=== PATIENT | female | born 1980 | race Hispanic/Latino ===

== ENCOUNTER 2017-01-19 19:58 | Emergency (ER) | payer MEDICARE ==
[2017-01-19 21:43] LABS: Basophils % (Auto) 0.3 % (0.0-1.8); Hemoglobin 13.1 gm/dl (10.1-14.3); Mean Corpuscular HGB Conc 33 % (30-34); Mean Corpuscular Hemoglobin 26 pg (28-32); Mean Corpuscular Volume 80 fl (79-97); Platelet Count 234 K/mm3 (140-440); Red Blood Count 5.01 M/mm3 (3.65-5.03); Red Cell Distribution Width 13.8 % (13.2-15.2); White Blood Count 12.6 K/mm3 (4.5-11.0)
[2017-01-19 21:57] LABS: Anion Gap 20 mmol/L; Blood Urea Nitrogen 7 mg/dL (7-17); Calcium 9.1 mg/dL (8.4-10.2); Carbon Dioxide 22 mmol/L (22-30); Chloride 97.5 mmol/L (98-107); Glucose 112 mg/dL (65-100); Potassium 3.1 mmol/L (3.6-5.0); Sodium 136 mmol/L (137-145)
[2017-01-19 22:06] LABS: INR 1.11 (0.87-1.13)
[2017-01-19] MEDS ORDERED: MAG-OX PO ONE (22:32)
[2017-01-19] MEDS ORDERED: K-DUR PO ONE (22:32)
[2017-01-19] MEDS ORDERED: NACL 0.9% 1000 ML 2,000 ML IV ONE (22:49)
[2017-01-19] MEDS ORDERED: REGLAN IV ONE (22:49)
[2017-01-19] MEDS ORDERED: TORADOL IV ONE (22:49)
--- NOTE | 2017-01-19 22:50 | Emergency Department Report ---
ED General Adult HPI - General Chief complaint: Psych Stated complaint: ANXIETY ATTACK Time Seen by Provider: 01/19/17 21:23 Source: patient, RN notes reviewed Mode of arrival: Ambulatory Limitations: No Limitations - History of Present Illness Initial comments: This is a 36-year-old female. She was previously unknown to me. Patient recently moved here from the [facility]. The patient presents to the ER complaining of headache, right upper quadrant pain, lower abdominal pain, nausea , generalized weakness. She reports that she feels anxious. The headache is global. It is throbbing. It is not sudden or thunderclap in nature. It did not reach maximal intensity within an hour. It is not the worse headache of her life. She reports a worse headache last year. There is no neck pain or neck stiffness. The abdominal pain is right upper quadrant, suprapubic, in the bilateral lower quadrants. It does not radiate anywhere per se, does not have exacerbating or relieving factors. The patient denies irritative obstructive urinary symptoms. She denies pelvic pain, pelvic discharge, and she reports that she is sexually active with one partner, does not work condoms, and she denies a history of gonorrhea and Chlamydia. She denies hallucinations, access to good firearms, and homicidal thoughts. She further denies intentional overdose. The patient does endorse suicidality, reports feeling stressed out. She does not have a plan at this time. -: Gradual Location: head, abdomen Quality: aching Consistency: intermittent Improves with: none Worsens with: none Associated Symptoms: fever/chills, headaches, loss of appetite, malaise, weakness - Related Data Previous Rx's Medication Instructions Recorded Last Taken Type Ibuprofen [Motrin] 400 mg PO Q8H PRN #20 tablet 01/20/17 Unknown Rx Levofloxacin [Levaquin] 750 mg PO QDAY #10 tablet 01/20/17 Unknown Rx Magnesium Oxide 400 mg PO QDAY #7 tablet 01/20/17 Unknown Rx Metoclopramide [Reglan] 10 mg PO QID PRN #30 tablet 01/20/17 Unknown Rx Potassium Chloride [K-Dur] 20 meq PO BID #14 tab 01/20/17 Unknown Rx oxyCODONE [Roxicodone] 5 mg PO Q6HR PRN #15 tablet 01/20/17 Unknown Rx Allergies Allergy/AdvReac Type Severity Reaction Status Date / Time No Known Allergies Allergy Verified 01/19/17 20:24 ED Review of Systems ROS: Stated complaint: ANXIETY ATTACK Other details as noted in HPI Constitutional: malaise Eyes: denies: vision change ENT: denies: epistaxis Respiratory: denies: cough Cardiovascular: denies: chest pain Gastrointestinal: abdominal pain Genitourinary: denies: dysuria Musculoskeletal: denies: back pain Skin: denies: lesions Neurological: headache, weakness Psychiatric: anxiety, suicidal thoughts ED Past Medical Hx - Past Medical History Previous Medical History?: Yes Hx Psychiatric Treatment: Yes (ANXIETY) - Surgical History Past Surgical History?: No - Social History Smoking Status: Never Smoker Substance Use Type: Marijuana - Medications Home Medications: Home Medications Medication Instructions Recorded Confirmed Last Taken Type Ibuprofen [Motrin] 400 mg PO Q8H PRN #20 tablet 01/20/17 Unknown Rx Levofloxacin [Levaquin] 750 mg PO QDAY #10 tablet 01/20/17 Unknown Rx Magnesium Oxide 400 mg PO QDAY #7 tablet 01/20/17 Unknown Rx Metoclopramide [Reglan] 10 mg PO QID PRN #30 tablet 01/20/17 Unknown Rx Potassium Chloride [K-Dur] 20 meq PO BID #14 tab 01/20/17 Unknown Rx oxyCODONE [Roxicodone] 5 mg PO Q6HR PRN #15 tablet 01/20/17 Unknown Rx ED Physical Exam - General Limitations: No Limitations General appearance: alert, in no apparent distress - Head Head exam: Present: atraumatic, normocephalic - Eye Eye exam: Present: normal appearance, EOMI. Absent: nystagmus - ENT ENT exam: Present: normal exam, normal orophraynx, mucous membranes moist, normal external ear exam - Neck Neck exam: Present: normal inspection, full ROM. Absent: tenderness, meningismus - Respiratory Respiratory exam: Present: normal lung sounds bilaterally. Absent: respiratory distress, wheezes, rales, rhonchi, stridor, chest wall tenderness - Cardiovascular Cardiovascular Exam: Present: normal rhythm, tachycardia, normal heart sounds. Absent: systolic murmur, diastolic murmur, rubs, gallop - GI/Abdominal GI/Abdominal exam: Present: soft, tenderness (there is right upper quadrant tenderness, there is bilateral lower quadrant tenderness, there is suprapubic tenderness.), normal bowel sounds. Absent: distended, guarding, rebound, rigid - External exam: Present: normal external exam Speculum exam: Present: normal speculum exam Bi-manual exam: Present: normal bi-manual exam, other (escorted by ER plastic surgery technician Trini Manzo). Absent: cervical motion tendernes, adnexal tenderness, adnexal mass - Extremities Exam Extremities exam: Present: normal inspection, full ROM, normal capillary refill. Absent: tenderness, pedal edema, joint swelling, calf tenderness - Back Exam Back exam: Present: normal inspection, full ROM. Absent: tenderness, CVA tenderness (R), CVA tenderness (L) - Neurological Exam Neurological exam: Present: alert, oriented X3, normal gait, other (Extraocular movements intact. Tongue midline. No facial droop. Facial sensation intact to light touch in the V1, V2, V3 distribution bilaterally. 5 and 5 strength in 4 extremities.. Sensation is intact to light touch in 4 extremities.). Absent : motor sensory deficit - Psychiatric Psychiatric exam: Present: anxious, suicidal ideation. Absent: homicidal ideation - Skin Skin exam: Present: warm, dry, intact, normal color. Absent: rash ED Course Vital Signs 01/19/17 01/20/17 01/20/17 20:24 01:18 01:19 Temperature 99.3 F 98.5 F 98.4 F Pulse Rate 121 H 78 100 H Respiratory 32 H 18 12 Rate Blood Pressure 140/74 Blood Pressure 145/96 118/75 [Left] O2 Sat by Pulse 100 100 99 Oximetry 01/20/17 08:52 Temperature 99 F Pulse Rate 94 H Respiratory 18 Rate Blood Pressure Blood Pressure 103/65 [Left] O2 Sat by Pulse 100 Oximetry - Reevaluation(s) Reevaluation #1: 01/20/17 01:18 Differential diagnosis: Anxiety, depression, pyelonephritis, dehydration, pelvic inflammatory disease, Drew-Gen Dagoberto syndrome, electrolyte derangement Assessment and plan: 36-year-old female with complaint of headache, abdominal pain, depression, suicidality. Rectal temperature 99.8 degrees, initially tachycardic, this improved with aggressive IV fluids and symptomatic therapy. Gynecologic examination is benign, therefore think pelvic inflammatory disease is unlikely. Patient found to be somewhat hypokalemic and hypomagnesemic. Urinalysis suggests urinary tract infection, CT scan of the abdomen and pelvis excluded abscess, but suggested left-sided pyelonephritis. Drew-Gen Dagoberto syndrome is not suggested. Nonspecific lesions noted in the chest portion of the CT scan, the patient can follow up with an outpatient primary care doctor for this. The patient is placed on a 1013 given her complaint of suicidality. She will be continued on magnesium supplementation, potassium supplementation, IV fluids and antibiotics. Patient was initially tachycardic, but her tachycardia improved with aggressive IV fluids. She will be continued on potassium and magnesium supplementation. She will be continued on IV antibiotics. Given resolution of abnormal vital signs, her ability to tolerate liquid feeds, and eat, and her overall benign clinical appearance, her urinary tract infection is not a direct medical contraindication to psychiatric consultation and evaluation. She is alert and oriented 3, has a GCS of 15, with an NIH score of 0. Medically speaking, but the patient was not suicidal, I would discharge the patient with outpatient antibiotics, antiemetics, and electrolyte replenishment. Her current condition does not require hospitalization at this time. There is no medical complications a psychiatric evaluation at this time. 01/20/17 01:21 ED Medical Decision Making - Lab Data Result diagrams: 01/19/17 21:30 01/19/17 21:30 Vital Signs 01/19/17 01/20/17 01/20/17 20:24 01:18 01:19 Temperature 99.3 F 98.5 F 98.4 F Pulse Rate 121 H 78 100 H Respiratory 32 H 18 12 Rate Blood Pressure 140/74 Blood Pressure 145/96 118/75 [Left] O2 Sat by Pulse 100 100 99 Oximetry Labs 01/19/17 01/19/17 01/19/17 20:21 21:30 21:30 WBC RBC Hgb Hct MCV MCH MCHC RDW Plt Count Lymph % (Auto) [place] % (Auto) Eos % (Auto) Baso % (Auto) Lymph # [place] # Eos # Baso # Seg Neutrophils % Seg Neutrophils # PT INR Sodium 136 L Potassium 3.1 L Chloride 97.5 L Carbon Dioxide 22 Anion Gap 20 BUN 7 Creatinine 0.5 L Estimated GFR > 60 BUN/Creatinine Ratio 14.00 Glucose 112 H POC Glucose 122 H Calcium 9.1 Magnesium Total Bilirubin Direct Bilirubin Indirect Bilirubin AST ALT Alkaline Phosphatase Total Creatine Kinase Total Protein Albumin Albumin/Globulin Ratio Lipase HCG, Qual Urine Color Urine Turbidity Urine pH Ur Specific [place] Urine Protein Urine Glucose (UA) Urine Ketones Urine Blood Urine Nitrite Urine Bilirubin Urine Urobilinogen Ur Leukocyte Esterase Urine WBC (Auto) Urine RBC (Auto) U Epithel Cells (Auto) Urine Bacteria (Auto) Urine Mucus Salicylates Urine Opiates Screen Urine Methadone Screen Acetaminophen Ur Barbiturates Screen Ur Phencyclidine Scrn Ur Amphetamines Screen U Benzodiazepines Scrn Urine Cocaine Screen U Marijuana (THC) Screen Drugs of Abuse Note Plasma/Serum Alcohol < 0.01 01/19/17 01/19/17 01/19/17 21:30 21:30 21:30 WBC 12.6 H RBC 5.01 Hgb 13.1 Hct 40.0 MCV 80 MCH 26 L MCHC 33 RDW 13.8 Plt Count 234 Lymph % (Auto) 10.0 L [place] % (Auto) 11.2 H Eos % (Auto) 0.0 Baso % (Auto) 0.3 Lymph # 1.3 [place] # 1.4 H Eos # 0.0 Baso # 0.0 Seg Neutrophils % 78.5 H Seg Neutrophils # 9.9 H PT INR Sodium Potassium Chloride Carbon Dioxide Anion Gap BUN Creatinine Estimated GFR BUN/Creatinine Ratio Glucose POC Glucose Calcium Magnesium Total Bilirubin Direct Bilirubin Indirect Bilirubin AST ALT Alkaline Phosphatase Total Creatine Kinase 86 Total Protein Albumin Albumin/Globulin Ratio Lipase HCG, Qual Negative Urine Color Urine Turbidity Urine pH Ur Specific [place] Urine Protein Urine Glucose (UA) Urine Ketones Urine Blood Urine Nitrite Urine Bilirubin Urine Urobilinogen Ur Leukocyte Esterase Urine WBC (Auto) Urine RBC (Auto) U Epithel Cells (Auto) Urine Bacteria (Auto) Urine Mucus Salicylates Urine Opiates Screen Urine Methadone Screen Acetaminophen Ur Barbiturates Screen Ur Phencyclidine Scrn Ur Amphetamines Screen U Benzodiazepines Scrn Urine Cocaine Screen U Marijuana (THC) Screen Drugs of Abuse Note Plasma/Serum Alcohol 01/19/17 01/19/17 01/19/17 21:30 21:30 21:30 WBC RBC Hgb Hct MCV MCH MCHC RDW Plt Count Lymph % (Auto) [place] % (Auto) Eos % (Auto) Baso % (Auto) Lymph # [place] # Eos # Baso # Seg Neutrophils % Seg Neutrophils # PT INR Sodium Potassium Chloride Carbon Dioxide Anion Gap BUN Creatinine Estimated GFR BUN/Creatinine Ratio Glucose POC Glucose Calcium Magnesium Total Bilirubin 0.70 Direct Bilirubin 0.2 Indirect Bilirubin 0.5 AST 11 ALT 11 Alkaline Phosphatase 45 Total Creatine Kinase Total Protein 7.5 Albumin 4.4 Albumin/Globulin Ratio 1.4 Lipase 15 HCG, Qual Urine Color Urine Turbidity Urine pH Ur Specific [place] Urine Protein Urine Glucose (UA) Urine Ketones Urine Blood Urine Nitrite Urine Bilirubin Urine Urobilinogen Ur Leukocyte Esterase Urine WBC (Auto) Urine RBC (Auto) U Epithel Cells (Auto) Urine Bacteria (Auto) Urine Mucus Salicylates < 0.3 L Urine Opiates Screen Urine Methadone Screen Acetaminophen < 15.0 Ur Barbiturates Screen Ur Phencyclidine Scrn Ur Amphetamines Screen U Benzodiazepines Scrn Urine Cocaine Screen U Marijuana (THC) Screen Drugs of Abuse Note Plasma/Serum Alcohol 01/19/17 01/19/17 01/19/17 21:40 22:20 22:20 WBC RBC Hgb Hct MCV MCH MCHC RDW Plt Count Lymph % (Auto) [place] % (Auto) Eos % (Auto) Baso % (Auto) Lymph # [place] # Eos # Baso # Seg Neutrophils % Seg Neutrophils # PT 14.9 INR 1.11 Sodium Potassium Chloride Carbon Dioxide Anion Gap BUN Creatinine Estimated GFR BUN/Creatinine Ratio Glucose POC Glucose Calcium Magnesium Total Bilirubin Direct Bilirubin Indirect Bilirubin AST ALT Alkaline Phosphatase Total Creatine Kinase Total Protein Albumin Albumin/Globulin Ratio Lipase HCG, Qual Urine Color Yellow Urine Turbidity Cloudy Urine pH 6.0 Ur Specific [place] 1.017 Urine Protein 100 mg/dl Urine Glucose (UA) Neg Urine Ketones 80 Urine Blood Mod Urine Nitrite Pos Urine Bilirubin Neg Urine Urobilinogen 4.0 Ur Leukocyte Esterase Lg Urine WBC (Auto) > 182.0 H Urine RBC (Auto) 23.0 U Epithel Cells (Auto) 65.0 H Urine Bacteria (Auto) 4+ Urine Mucus 3+ Salicylates Urine Opiates Screen Presumptive negative Urine Methadone Screen Presumptive negative Acetaminophen Ur Barbiturates Screen Presumptive negative Ur Phencyclidine Scrn Presumptive negative Ur Amphetamines Screen Presumptive negative U Benzodiazepines Scrn Presumptive negative Urine Cocaine Screen Presumptive negative U Marijuana (THC) Screen Presumptive positive Drugs of Abuse Note Disclamer Plasma/Serum Alcohol 01/19/17 22:32 WBC RBC Hgb Hct MCV MCH MCHC RDW Plt Count Lymph % (Auto) [place] % (Auto) Eos % (Auto) Baso % (Auto) Lymph # [place] # Eos # Baso # Seg Neutrophils % Seg Neutrophils # PT INR Sodium Potassium Chloride Carbon Dioxide Anion Gap BUN Creatinine Estimated GFR BUN/Creatinine Ratio Glucose POC Glucose Calcium Magnesium 1.60 L Total Bilirubin Direct Bilirubin Indirect Bilirubin AST ALT Alkaline Phosphatase Total Creatine Kinase Total Protein Albumin Albumin/Globulin Ratio Lipase HCG, Qual Urine Color Urine Turbidity Urine pH Ur Specific [place] Urine Protein Urine Glucose (UA) Urine Ketones Urine Blood Urine Nitrite Urine Bilirubin Urine Urobilinogen Ur Leukocyte Esterase Urine WBC (Auto) Urine RBC (Auto) U Epithel Cells (Auto) Urine Bacteria (Auto) Urine Mucus Salicylates Urine Opiates Screen Urine Methadone Screen Acetaminophen Ur Barbiturates Screen Ur Phencyclidine Scrn Ur Amphetamines Screen U Benzodiazepines Scrn Urine Cocaine Screen U Marijuana (THC) Screen Drugs of Abuse Note Plasma/Serum Alcohol - Radiology Data Radiology results: report reviewed, image reviewed CT scan suggests pyelonephritis. Pulmonary lesion is suggested, this can be followed up by her primary care doctor Critical care attestation.: If time is entered above; I have spent that time in minutes in the direct care of this critically ill patient, excluding procedure time. ED Disposition Clinical Impression: Pyelonephritis, Mood disorder, Hypokalemia, Hypomagnesemia Disposition: TO HOME OR SELFCARE Is pt being admited?: No Does the pt Need Aspirin: No Condition: Stable Instructions: Acute Pyelonephritis (ED) Additional Instructions: Cultures were sent today, results will be available in the next 3-5 days. have a primary care doctor and have a primary care doctor contact the medical records department to obtain culture results. Take the pain medication, nausea medication, potassium, magnesium, antibiotics as directed. Do not consume alcohol. Follow-up with a primary care doctor within the next 7-10 days. Return to the ER right away with new pain, worsened pain, migration of pain, fevers, chills, confusion, intractable nausea or vomiting, inability to tolerate liquid feeds. Referrals: PRIMARY MD GRISELDA [Primary Care Provider] - 3-5 Days OLIVIA SONI MD [Staff Physician] - 3-5 Days
[2017-01-19 23:20] LABS: Urine Drugs of Abuse Note Disclamer
[2017-01-19 23:51] LABS: Albumin 4.4 g/dL (3.9-5); Albumin/Globulin Ratio 1.4 %; Bilirubin,Direct 0.2 mg/dL (0-0.2); Bilirubin,Indirect 0.5 mg/dL; Bilirubin,Total 0.7 mg/dL (0.1-1.2); Total Protein 7.5 g/dL (6.3-8.2)
[2017-01-20 00:32] LABS: Bacteria,Urine 4+ /HPF (Negative); Bilirubin,Urine NEG (Negative); Blood,Urine MOD (Negative); Ketones,Urine 80 mg/dL (Negative); Leukocyte Esterase,Urine LG (Negative); Mucus,Urine 3+ /HPF; Nitrite,Urine POS (Negative)
[2017-01-20 00:34] LABS: WBC,Urine > 182.0 /HPF (0.0-6.0)
--- NOTE | 2017-01-20 01:05 | Cat Scan Report ---
FINAL REPORT EXAM: CT ABDOMEN PELVIS W CON HISTORY: RUQ LOWER ABD PAIN TECHNIQUE: Spiral CT scanning of the abdomen and pelvis after the uneventful administration of IV contrast. PRIORS: None. FINDINGS: Abdomen: Visualized lung bases show small nodular density in the left posterior lung base measuring approximately 3.5 mm. No radiopaque gallstones. Liver without significant abnormality. Spleen without significant abnormality. Pancreas without significant abnormality. A few, punctate calcifications in the right kidney and 2-3 larger calcifications in left renal lower pole, largest measuring approximately 8 mm. Mildly heterogeneous enhancement pattern in left renal posteroinferior cortex, with slight perinephric fat stranding. No significant hydronephrosis or abnormal perinephric fluid collection. Adrenal glands without significant abnormality. Pelvis: The colon is diffusely fluid and gas-filled, nonspecific. Remainder of bowel grossly unremarkable. Appendix within normal limits. Trace amount of free fluid in the pelvis. No discrete abscess. Abdominal aorta non-aneurysmal. Probable follicular change in the left ovary. IMPRESSION: 1. Findings which may be associated with nonspecific postinflammatory change, including diarrhea or enteritis. Correlate clinically. 2. Nonobstructing, bilateral renal calcifications. 3. Findings which may represent nonspecific postinflammatory change involving the left kidney, including pyelonephritis or UTI of uncertain chronicity. 3. Possible physiologic cystic change in the left ovary, and sequelae of ovarian follicle or cyst rupture. 4. Small, nodular density in left lung base, indeterminate. If the patient is low risk (no significant smoking history, no history of malignancy, and a normal immune system), nodules less than 4mm in size need no follow-up. If the patient is high risk, follow-up in 12 months recommended with noncontrast CT chest. If there is no change at that time, no additional follow-up is necessary. (Based on Fleischner criteria).
[2017-01-20] MEDS ORDERED: ATIVAN IM PRN (01:09)
[2017-01-20] MEDS ORDERED: ROCEPHIN/NS 1 GM/50 ML 1 GM/50 ML BAG IV ONE (01:09)
[2017-01-20] MEDS ORDERED: MOTRIN PO PRN (01:10)
[2017-01-20] MEDS ORDERED: ZOFRAN IV PRN (01:10)
[2017-01-20] MEDS ORDERED: TYLENOL PO PRN (01:10)
[2017-01-20] MEDS: K-DUR PO SCH ×2 (01:48→10:42)
[2017-01-20] MEDS ORDERED: MAG-OX PO SCH (10:00)
--- NOTE | 2017-01-20 16:00 | Consultation ---
History of Present Illness - Reason for Consult Consult date: 01/20/17 Reason for consult: psychiatric evaluation - Chief Complaint Chief complaint: "panic attack" - History of Present Psychiatric Illness 36 year old female from the [facility] seen for psychiatric evaluation in the ER. She presented to the ER for physical complaints of headache, abdominal pain, and also anxiety. Per the record she reported suicidality at some point after she presented to the ER. She reports having panic symptoms at the time and feeling overwhelmed. Her current stressors are a recent move(1.5 weeks ago) from the [facility]. She does not have her current prescription for xanax. she states she takes it when she feels a panic attack coming on. She states she was treated by a psychiatrist in the [facility] up until she moved. She reports taking it rarely but over the past week, she has had 2 panic attacks. One of which was when she missed her flight. She reports that she did say "I don 't want to go through this" when she was feeling the panic symptoms. She denied a plan to harm herself and continues to deny any plans to harm herself. She states she never wanted to harm herself but felt overwhelmed. She reports fair sleep and a decreased appetite, which she attributes to being busy from the move. She denies a history of eating disorder. She plans to establish outpatient treatment once settled in from her move. She denies homicidal ideation. She denies psychotic symptoms. No signs of psychosis observed. She reports having the support of her boyfriend, who lives in [facility]. They have been together for 7 years and he is in the ER to pick her up. Medications and Allergies Allergies Allergy/AdvReac Type Severity Reaction Status Date / Time No Known Allergies Allergy Verified 01/19/17 20:24 Home Medications Medication Instructions Recorded Confirmed Last Taken Type No Known Home Medications [No 01/19/17 01/19/17 Unknown History Reported Home Medications] Active Meds: Active Medications Acetaminophen (Tylenol) 650 mg PO Q4HR PRN PRN Reason: Fever Ceftriaxone Sodium (Rocephin/Ns 1 Gm/50 Ml) 1 gm in 50 mls @ 100 mls/hr IV QDAY @2200 SENTHIL Stop: 01/29/17 22:29 Ibuprofen (Motrin) 600 mg PO Q6HR PRN PRN Reason: Pain Lorazepam (Ativan) 2 mg IM Q4HR PRN PRN Reason: Agitation Magnesium Oxide (Mag-Ox) 400 mg PO QDAY [facility] Last Admin: 01/20/17 10:42 Dose: 400 mg Ondansetron HCl (Zofran) 4 mg IV Q6HR PRN PRN Reason: Nausea Potassium Chloride (K-Dur) 20 meq PO BID [facility] Stop: 01/24/17 10:01 Last Admin: 01/20/17 10:42 Dose: 20 meq Past psychiatric history - Past Medical History Past Surgical History: Other (2 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 - Social History Social history: other (UDS positive for THC. no alcohol or other illicit substances. She is living with friends. Her daughters are with her, ages 9 and 16.) Mental Status Exam - Vital signs Last Vital Signs Temp 99 F 01/20/17 08:52 Pulse 94 H 01/20/17 08:52 Resp 18 01/20/17 08:52 BP 103/65 01/20/17 08:52 Pulse Ox 100 01/20/17 08:52 - Exam Orientation: time, place, person Affect: normal Mood: appropriate Thought content: other (no suicidal or homicidal ideation) Thought Process: Intact Perceptions: none Speech: normal rate and pattern Concentration: focused Motor activity: normal Level of consciousness: alert Memory: Intact Sleep Symptoms: None Appetite: decreased Interaction: cooperative Results Result Diagrams: 01/19/17 21:30 01/19/17 21:30 Abnormal lab results 01/19/17 01/19/17 01/19/17 Range/Units 20:21 21:30 21:30 WBC 12.6 H (4.5-11.0) K/mm3 MCH 26 L (28-32) pg Lymph % (Auto) 10.0 L (13.4-35.0) % [place] % (Auto) 11.2 H (0.0-7.3) % [place] # 1.4 H (0.0-0.8) K/mm3 Seg Neutrophils % 78.5 H (40.0-70.0) % Seg Neutrophils # 9.9 H (1.8-7.7) K/mm3 Sodium 136 L (137-145) mmol/L Potassium 3.1 L (3.6-5.0) mmol/L Chloride 97.5 L (98-107) mmol/L Creatinine 0.5 L (0.7-1.2) mg/dL Glucose 112 H (65-100) mg/dL POC Glucose 122 H (70-105) Magnesium (1.7-2.3) mg/dL Urine WBC (Auto) (0.0-6.0) /HPF U Epithel Cells (Auto) (0-13.0) /HPF Salicylates (2.8-20.0) mg/dL 01/19/17 01/19/17 01/19/17 Range/Units 21:30 22:20 22:32 WBC (4.5-11.0) K/mm3 MCH (28-32) pg Lymph % (Auto) (13.4-35.0) % [place] % (Auto) (0.0-7.3) % [place] # (0.0-0.8) K/mm3 Seg Neutrophils % (40.0-70.0) % Seg Neutrophils # (1.8-7.7) K/mm3 Sodium (137-145) mmol/L Potassium (3.6-5.0) mmol/L Chloride (98-107) mmol/L Creatinine (0.7-1.2) mg/dL Glucose (65-100) mg/dL POC Glucose (70-105) Magnesium 1.60 L (1.7-2.3) mg/dL Urine WBC (Auto) > 182.0 H (0.0-6.0) /HPF U Epithel Cells (Auto) 65.0 H (0-13.0) /HPF Salicylates < 0.3 L (2.8-20.0) mg/dL All other labs normal. Assessment and Plan Assessment and plan: Impression: Panic disorder-chronic Acute stressors are a recent move, and she does not have her regular prn medication, xanax. Dose is unknown. No suicidal or homicidal ideation identified. No psychosis identified. No acute safety concerns are identified. She reports having distressing panic symptoms and describes passive thoughts of at the time of the panic attack. The panic symptoms have resolved and she expresses future and goal oriented thinking and planning. Recommendations: Rescind 1013 as she is not at imminent risk of self harm. Outpatient resources have been provided in order to help her establish psychiatric care. Medication reconciliation is recommended. She would benefit from a small dose of anxiolytic to use sparingly until she has established care with a psychiatrist. Abstain from all illicit substances and alcohol.
--- NOTE | 2017-01-20 16:32 | Event Note ---
Date: 01/20/17 The patient's 1013 has been discontinued by psychiatry. The patient is not homicidal or suicidal at this time, she is alert and oriented 3, she has a GCS of 15, with an NIH score of 0. She is tolerating liquid feeds, and will be discharged with oral antibiotics, pain medication, nausea medication, and electrolyte replenishment. Vital Signs 01/19/17 01/20/17 01/20/17 20:24 01:18 01:19 Temperature 99.3 F 98.5 F 98.4 F Pulse Rate 121 H 78 100 H Respiratory 32 H 18 12 Rate Blood Pressure 140/74 Blood Pressure 145/96 118/75 [Left] O2 Sat by Pulse 100 100 99 Oximetry 01/20/17 08:52 Temperature 99 F Pulse Rate 94 H Respiratory 18 Rate Blood Pressure Blood Pressure 103/65 [Left] O2 Sat by Pulse 100 Oximetry Lab Results 01/19/17 01/19/17 01/19/17 Range/Units 20:21 21:30 21:30 WBC (4.5-11.0) K/mm3 RBC (3.65-5.03) M/mm3 Hgb (10.1-14.3) gm/dl Hct (30.3-42.9) % MCV (79-97) fl MCH (28-32) pg MCHC (30-34) % RDW (13.2-15.2) % Plt Count (140-440) K/mm3 Lymph % (Auto) (13.4-35.0) % [place] % (Auto) (0.0-7.3) % Eos % (Auto) (0.0-4.3) % Baso % (Auto) (0.0-1.8) % Lymph # (1.2-5.4) K/mm3 Cors[place] # (0.0-0.8) K/mm3 Eos # (0.0-0.4) K/mm3 Baso # (0.0-0.1) K/mm3 Seg Neutrophils % (40.0-70.0) % Seg Neutrophils # (1.8-7.7) K/mm3 PT (12.2-14.9) Sec. INR (0.87-1.13) Sodium 136 L (137-145) mmol/L Potassium 3.1 L (3.6-5.0) mmol/L Chloride 97.5 L (98-107) mmol/L Carbon Dioxide 22 (22-30) mmol/L Anion Gap 20 mmol/L BUN 7 (7-17) mg/dL Creatinine 0.5 L (0.7-1.2) mg/dL Estimated GFR > 60 ml/min BUN/Creatinine Ratio 14.00 % Glucose 112 H (65-100) mg/dL POC Glucose 122 H (70-105) Calcium 9.1 (8.4-10.2) mg/dL Magnesium (1.7-2.3) mg/dL Total Bilirubin (0.1-1.2) mg/dL Direct Bilirubin (0-0.2) mg/dL Indirect Bilirubin mg/dL AST (5-40) units/L ALT (7-56) units/L Alkaline Phosphatase (35-129) units/L Total Creatine Kinase (30-135) units/L Total Protein (6.3-8.2) g/dL Albumin (3.9-5) g/dL Albumin/Globulin Ratio % Lipase (13-60) units/L HCG, Qual (Negative) Urine Color (Yellow) Urine Turbidity (Clear) Urine pH (5.0-7.0) Ur Specific Carlton (1.003-1.030) Urine Protein (Negative) mg/dL Urine Glucose (UA) (Negative) mg/dL Urine Ketones (Negative) mg/dL Urine Blood (Negative) Urine Nitrite (Negative) Urine Bilirubin (Negative) Urine Urobilinogen (<2.0) mg/dL Ur Leukocyte Esterase (Negative) Urine WBC (Auto) (0.0-6.0) /HPF Urine RBC (Auto) (0.0-6.0) /HPF U Epithel Cells (Auto) (0-13.0) /HPF Urine Bacteria (Auto) (Negative) /HPF Urine Mucus /HPF Salicylates (2.8-20.0) mg/dL Urine Opiates Screen Urine Methadone Screen Acetaminophen (10.0-30.0) ug/mL Ur Barbiturates Screen Ur Phencyclidine Scrn Ur Amphetamines Screen U Benzodiazepines Scrn Urine Cocaine Screen U Marijuana (THC) Screen Drugs of Abuse Note Plasma/Serum Alcohol < 0.01 (0-0.07) gm% 08/18/17 08/18/17 08/18/17 Range/Units 21:30 21:30 21:30 WBC 12.6 H (4.5-11.0) K/mm3 RBC 5.01 (3.65-5.03) M/mm3 Hgb 13.1 (10.1-14.3) gm/dl Hct 40.0 (30.3-42.9) % MCV 80 (79-97) fl MCH 26 L (28-32) pg MCHC 33 (30-34) % RDW 13.8 (13.2-15.2) % Plt Count 234 (140-440) K/mm3 Lymph % (Auto) 10.0 L (13.4-35.0) % Cors[place] % (Auto) 11.2 H (0.0-7.3) % Eos % (Auto) 0.0 (0.0-4.3) % Baso % (Auto) 0.3 (0.0-1.8) % Lymph # 1.3 (1.2-5.4) K/mm3 Corson # 1.4 H (0.0-0.8) K/mm3 Eos # 0.0 (0.0-0.4) K/mm3 Baso # 0.0 (0.0-0.1) K/mm3 Seg Neutrophils % 78.5 H (40.0-70.0) % Seg Neutrophils # 9.9 H (1.8-7.7) K/mm3 PT (12.2-14.9) Sec. INR (0.87-1.13) Sodium (137-145) mmol/L Potassium (3.6-5.0) mmol/L Chloride (98-107) mmol/L Carbon Dioxide (22-30) mmol/L Anion Gap mmol/L BUN (7-17) mg/dL Creatinine (0.7-1.2) mg/dL Estimated GFR ml/min BUN/Creatinine Ratio % Glucose (65-100) mg/dL POC Glucose (70-105) Calcium (8.4-10.2) mg/dL Magnesium (1.7-2.3) mg/dL Total Bilirubin (0.1-1.2) mg/dL Direct Bilirubin (0-0.2) mg/dL Indirect Bilirubin mg/dL AST (5-40) units/L ALT (7-56) units/L Alkaline Phosphatase (35-129) units/L Total Creatine Kinase 86 (30-135) units/L Total Protein (6.3-8.2) g/dL Albumin (3.9-5) g/dL Albumin/Globulin Ratio % Lipase (13-60) units/L HCG, Qual Negative (Negative) Urine Color (Yellow) Urine Turbidity (Clear) Urine pH (5.0-7.0) Ur Specific Carlton (1.003-1.030) Urine Protein (Negative) mg/dL Urine Glucose (UA) (Negative) mg/dL Urine Ketones (Negative) mg/dL Urine Blood (Negative) Urine Nitrite (Negative) Urine Bilirubin (Negative) Urine Urobilinogen (<2.0) mg/dL Ur Leukocyte Esterase (Negative) Urine WBC (Auto) (0.0-6.0) /HPF Urine RBC (Auto) (0.0-6.0) /HPF U Epithel Cells (Auto) (0-13.0) /HPF Urine Bacteria (Auto) (Negative) /HPF Urine Mucus /HPF Salicylates (2.8-20.0) mg/dL Urine Opiates Screen Urine Methadone Screen Acetaminophen (10.0-30.0) ug/mL Ur Barbiturates Screen Ur Phencyclidine Scrn Ur Amphetamines Screen U Benzodiazepines Scrn Urine Cocaine Screen U Marijuana (THC) Screen Drugs of Abuse Note Plasma/Serum Alcohol (0-0.07) gm% 01/19/17 01/19/17 01/19/17 Range/Units 21:30 21:30 21:30 WBC (4.5-11.0) K/mm3 RBC (3.65-5.03) M/mm3 Hgb (10.1-14.3) gm/dl Hct (30.3-42.9) % MCV (79-97) fl MCH (28-32) pg MCHC (30-34) % RDW (13.2-15.2) % Plt Count (140-440) K/mm3 Lymph % (Auto) (13.4-35.0) % Cors[place] % (Auto) (0.0-7.3) % Eos % (Auto) (0.0-4.3) % Baso % (Auto) (0.0-1.8) % Lymph # (1.2-5.4) K/mm3 Cors[place] # (0.0-0.8) K/mm3 Eos # (0.0-0.4) K/mm3 Baso # (0.0-0.1) K/mm3 Seg Neutrophils % (40.0-70.0) % Seg Neutrophils # (1.8-7.7) K/mm3 PT (12.2-14.9) Sec. INR (0.87-1.13) Sodium (137-145) mmol/L Potassium (3.6-5.0) mmol/L Chloride (98-107) mmol/L Carbon Dioxide (22-30) mmol/L Anion Gap mmol/L BUN (7-17) mg/dL Creatinine (0.7-1.2) mg/dL Estimated GFR ml/min BUN/Creatinine Ratio % Glucose (65-100) mg/dL POC Glucose (70-105) Calcium (8.4-10.2) mg/dL Magnesium (1.7-2.3) mg/dL Total Bilirubin 0.70 (0.1-1.2) mg/dL Direct Bilirubin 0.2 (0-0.2) mg/dL Indirect Bilirubin 0.5 mg/dL AST 11 (5-40) units/L ALT 11 (7-56) units/L Alkaline Phosphatase 45 (35-129) units/L Total Creatine Kinase (30-135) units/L Total Protein 7.5 (6.3-8.2) g/dL Albumin 4.4 (3.9-5) g/dL Albumin/Globulin Ratio 1.4 % Lipase 15 (13-60) units/L HCG, Qual (Negative) Urine Color (Yellow) Urine Turbidity (Clear) Urine pH (5.0-7.0) Ur Specific Carlton (1.003-1.030) Urine Protein (Negative) mg/dL Urine Glucose (UA) (Negative) mg/dL Urine Ketones (Negative) mg/dL Urine Blood (Negative) Urine Nitrite (Negative) Urine Bilirubin (Negative) Urine Urobilinogen (<2.0) mg/dL Ur Leukocyte Esterase (Negative) Urine WBC (Auto) (0.0-6.0) /HPF Urine RBC (Auto) (0.0-6.0) /HPF U Epithel Cells (Auto) (0-13.0) /HPF Urine Bacteria (Auto) (Negative) /HPF Urine Mucus /HPF Salicylates < 0.3 L (2.8-20.0) mg/dL Urine Opiates Screen Urine Methadone Screen Acetaminophen < 15.0 (10.0-30.0) ug/mL Ur Barbiturates Screen Ur Phencyclidine Scrn Ur Amphetamines Screen U Benzodiazepines Scrn Urine Cocaine Screen U Marijuana (THC) Screen Drugs of Abuse Note Plasma/Serum Alcohol (0-0.07) gm% 01/19/17 01/19/17 01/19/17 Range/Units 21:40 22:20 22:20 WBC (4.5-11.0) K/mm3 RBC (3.65-5.03) M/mm3 Hgb (10.1-14.3) gm/dl Hct (30.3-42.9) % MCV (79-97) fl MCH (28-32) pg MCHC (30-34) % RDW (13.2-15.2) % Plt Count (140-440) K/mm3 Lymph % (Auto) (13.4-35.0) % Cors[place] % (Auto) (0.0-7.3) % Eos % (Auto) (0.0-4.3) % Baso % (Auto) (0.0-1.8) % Lymph # (1.2-5.4) K/mm3 [place] # (0.0-0.8) K/mm3 Eos # (0.0-0.4) K/mm3 Baso # (0.0-0.1) K/mm3 Seg Neutrophils % (40.0-70.0) % Seg Neutrophils # (1.8-7.7) K/mm3 PT 14.9 (12.2-14.9) Sec. INR 1.11 (0.87-1.13) Sodium (137-145) mmol/L Potassium (3.6-5.0) mmol/L Chloride (98-107) mmol/L Carbon Dioxide (22-30) mmol/L Anion Gap mmol/L BUN (7-17) mg/dL Creatinine (0.7-1.2) mg/dL Estimated GFR ml/min BUN/Creatinine Ratio % Glucose (65-100) mg/dL POC Glucose (70-105) Calcium (8.4-10.2) mg/dL Magnesium (1.7-2.3) mg/dL Total Bilirubin (0.1-1.2) mg/dL Direct Bilirubin (0-0.2) mg/dL Indirect Bilirubin mg/dL AST (5-40) units/L ALT (7-56) units/L Alkaline Phosphatase (35-129) units/L Total Creatine Kinase (30-135) units/L Total Protein (6.3-8.2) g/dL Albumin (3.9-5) g/dL Albumin/Globulin Ratio % Lipase (13-60) units/L HCG, Qual (Negative) Urine Color Yellow (Yellow) Urine Turbidity Cloudy (Clear) Urine pH 6.0 (5.0-7.0) Ur Specific Carlton 1.017 (1.003-1.030) Urine Protein 100 mg/dl (Negative) mg/dL Urine Glucose (UA) Neg (Negative) mg/dL Urine Ketones 80 (Negative) mg/dL Urine Blood Mod (Negative) Urine Nitrite Pos (Negative) Urine Bilirubin Neg (Negative) Urine Urobilinogen 4.0 (<2.0) mg/dL Ur Leukocyte Esterase Lg (Negative) Urine WBC (Auto) > 182.0 H (0.0-6.0) /HPF Urine RBC (Auto) 23.0 (0.0-6.0) /HPF U Epithel Cells (Auto) 65.0 H (0-13.0) /HPF Urine Bacteria (Auto) 4+ (Negative) /HPF Urine Mucus 3+ /HPF Salicylates (2.8-20.0) mg/dL Urine Opiates Screen Presumptive negative Urine Methadone Screen Presumptive negative Acetaminophen (10.0-30.0) ug/mL Ur Barbiturates Screen Presumptive negative Ur Phencyclidine Scrn Presumptive negative Ur Amphetamines Screen Presumptive negative U Benzodiazepines Scrn Presumptive negative Urine Cocaine Screen Presumptive negative U Marijuana (THC) Screen Presumptive positive Drugs of Abuse Note Disclamer Plasma/Serum Alcohol (0-0.07) gm% 01/19/17 Range/Units 22:32 WBC (4.5-11.0) K/mm3 RBC (3.65-5.03) M/mm3 Hgb (10.1-14.3) gm/dl Hct (30.3-42.9) % MCV (79-97) fl MCH (28-32) pg MCHC (30-34) % RDW (13.2-15.2) % Plt Count (140-440) K/mm3 Lymph % (Auto) (13.4-35.0) % Cors[place] % (Auto) (0.0-7.3) % Eos % (Auto) (0.0-4.3) % Baso % (Auto) (0.0-1.8) % Lymph # (1.2-5.4) K/mm3 [place] # (0.0-0.8) K/mm3 Eos # (0.0-0.4) K/mm3 Baso # (0.0-0.1) K/mm3 Seg Neutrophils % (40.0-70.0) % Seg Neutrophils # (1.8-7.7) K/mm3 PT (12.2-14.9) Sec. INR (0.87-1.13) Sodium (137-145) mmol/L Potassium (3.6-5.0) mmol/L Chloride (98-107) mmol/L Carbon Dioxide (22-30) mmol/L Anion Gap mmol/L BUN (7-17) mg/dL Creatinine (0.7-1.2) mg/dL Estimated GFR ml/min BUN/Creatinine Ratio % Glucose (65-100) mg/dL POC Glucose (70-105) Calcium (8.4-10.2) mg/dL Magnesium 1.60 L (1.7-2.3) mg/dL Total Bilirubin (0.1-1.2) mg/dL Direct Bilirubin (0-0.2) mg/dL Indirect Bilirubin mg/dL AST (5-40) units/L ALT (7-56) units/L Alkaline Phosphatase (35-129) units/L Total Creatine Kinase (30-135) units/L Total Protein (6.3-8.2) g/dL Albumin (3.9-5) g/dL Albumin/Globulin Ratio % Lipase (13-60) units/L HCG, Qual (Negative) Urine Color (Yellow) Urine Turbidity (Clear) Urine pH (5.0-7.0) Ur Specific Carlton (1.003-1.030) Urine Protein (Negative) mg/dL Urine Glucose (UA) (Negative) mg/dL Urine Ketones (Negative) mg/dL Urine Blood (Negative) Urine Nitrite (Negative) Urine Bilirubin (Negative) Urine Urobilinogen (<2.0) mg/dL Ur Leukocyte Esterase (Negative) Urine WBC (Auto) (0.0-6.0) /HPF Urine RBC (Auto) (0.0-6.0) /HPF U Epithel Cells (Auto) (0-13.0) /HPF Urine Bacteria (Auto) (Negative) /HPF Urine Mucus /HPF Salicylates (2.8-20.0) mg/dL Urine Opiates Screen Urine Methadone Screen Acetaminophen (10.0-30.0) ug/mL Ur Barbiturates Screen Ur Phencyclidine Scrn Ur Amphetamines Screen U Benzodiazepines Scrn Urine Cocaine Screen U Marijuana (THC) Screen Drugs of Abuse Note Plasma/Serum Alcohol (0-0.07) gm%
[2017-01-20 16:47] VITALS: BP 116/67
[2017-01-20] MEDS ORDERED: ROCEPHIN/NS 1 GM/50 ML 1 GM/50 ML BAG IV SCH (22:00)
== END 2017-01-20 16:46 | disposition home or self-care (01) ==
LOC: EEVIPCON 19:58 → ED 19:58
DX: N12 Tubulo-interstitial nephritis, not specified as acute or chronic (principal); F39 Unspecified mood [affective] disorder; E87.6 Hypokalemia; E83.42 Hypomagnesemia; F41.9 Anxiety disorder, unspecified; F12.10 Cannabis abuse, uncomplicated
CPT/HCPCS: 36415; 74177; 80048; 80074; 80307; 81001; 82550; 82962; 83690; 83735; 84703; 85025; 85610; 87076; 87086; 87186; 87210; 87591; 96361; 96365; 96375; 99285; G0480; J0696; J1885; J2765; J7030; Q9967; 80320

== ENCOUNTER 2017-05-11 05:55 | Emergency (ER) | payer MEDICARE ==
[2017-05-11 07:41] LABS: Basophils % (Auto) 0.8 % (0.0-1.8); Eosinophils % (Auto) 0.5 % (0.0-4.3); Hematocrit 40.9 % (30.3-42.9); Hemoglobin 13.4 gm/dl (10.1-14.3); Mean Corpuscular HGB Conc 33 % (30-34); Mean Corpuscular Hemoglobin 26 pg (28-32); Mean Corpuscular Volume 80 fl (79-97); Platelet Count 265 K/mm3 (140-440); Red Blood Count 5.13 M/mm3 (3.65-5.03); Red Cell Distribution Width 14.2 % (13.2-15.2); White Blood Count 10.4 K/mm3 (4.5-11.0)
[2017-05-11 07:48] LABS: Anion Gap 19 mmol/L; BUN/Creatinine Ratio 12; Blood Urea Nitrogen 6 mg/dL (7-17); Calcium 9.5 mg/dL (8.4-10.2); Carbon Dioxide 25 mmol/L (22-30); Chloride 100.2 mmol/L (98-107); Glucose 105 mg/dL (65-100); Potassium 3.4 mmol/L (3.6-5.0); Sodium 141 mmol/L (137-145)
[2017-05-11 13:49] LABS: Bacteria,Urine 4+ /HPF (Negative); Bilirubin,Urine NEG (Negative); Blood,Urine NEG (Negative); Ketones,Urine 80 mg/dL (Negative); Leukocyte Esterase,Urine LG (Negative); Mucus,Urine 2+ /HPF; Nitrite,Urine NEG (Negative); Urobilinogen,Urine < 2.0 mg/dL (<2.0)
[2017-05-11] MEDS ORDERED: ZOFRAN ODT PO ONE (16:35)
[2017-05-11] MEDS ORDERED: XYLOCAINE 1% MPF 5 mL INFILTRATI ONE (16:35)
[2017-05-11] MEDS ORDERED: K-DUR PO ONE (16:35)
[2017-05-11] MEDS ORDERED: ROCEPHIN IM ONE (16:35)
--- NOTE | 2017-05-11 16:44 | Emergency Department Report ---
ED General Adult HPI - General Chief complaint: Nausea/Vomiting/Diarrhea Stated complaint: ABD PAIN/N/V Time Seen by Provider: 05/11/17 16:22 Source: patient Mode of arrival: Ambulatory Limitations: No Limitations - History of Present Illness Initial comments: 36 yo female who comes in today due to nausea/vomiting/headache. She states that she was seen at [facility] on Sunday and was diagnosed with a uti and . She states that at that time she had a headache. She admits to not being able to hold anything down, with her last time attempting to eat was on yesterday evening. Also admits to a history of anxiety for which she normally takes klonopin, alprazolam, or xanax. She states that she hasn't taken any benzodiazepines since finding out that she is . -: week(s) Location: head Severity scale (0 -10): 8 Consistency: now resolved Improves with: none Worsens with: eating Treatments Prior to Arrival: none - Related Data Previous Rx's Medication Instructions Recorded Last Taken Type Ibuprofen [Motrin] 400 mg PO Q8H PRN #20 tablet 01/20/17 Unknown Rx Levofloxacin [Levaquin] 750 mg PO QDAY #10 tablet 01/20/17 Unknown Rx Magnesium Oxide 400 mg PO QDAY #7 tablet 01/20/17 Unknown Rx Metoclopramide [Reglan] 10 mg PO QID PRN #30 tablet 01/20/17 Unknown Rx Potassium Chloride [K-Dur] 20 meq PO BID #14 tab 01/20/17 Unknown Rx oxyCODONE [Roxicodone] 5 mg PO Q6HR PRN #15 tablet 01/20/17 Unknown Rx Ondansetron [Zofran Odt] 4 mg PO Q8HR PRN #20 tab.rapdis 05/11/17 Unknown Rx Sertraline [Zoloft] 25 mg PO QDAY #30 tab 05/11/17 Unknown Rx Allergies Allergy/AdvReac Type Severity Reaction Status Date / Time No Known Allergies Allergy Verified 01/19/17 20:24 ED Review of Systems ROS: Stated complaint: ABD PAIN/N/V Other details as noted in HPI Constitutional: weakness Eyes: denies: eye pain, eye discharge, vision change ENT: denies: ear pain, throat pain Respiratory: denies: cough, shortness of breath, wheezing Cardiovascular: denies: chest pain, palpitations Endocrine: no symptoms reported Gastrointestinal: as per HPI, nausea Genitourinary: as per HPI Musculoskeletal: denies: back pain, joint swelling, arthralgia Skin: denies: rash, lesions Neurological: denies: headache, weakness, paresthesias Psychiatric: denies: anxiety, depression Hematological/Lymphatic: denies: easy bleeding, easy bruising ED Past Medical Hx - Past Medical History Previous Medical History?: Yes Hx Psychiatric Treatment: Yes (ANXIETY) - Surgical History Past Surgical History?: Yes Additional Surgical History: Spinal - Social History Smoking Status: Never Smoker Substance Use Type: None - Medications Home Medications: Home Medications Medication Instructions Recorded Confirmed Last Taken Type Ibuprofen [Motrin] 400 mg PO Q8H PRN #20 tablet 01/20/17 Unknown Rx Levofloxacin [Levaquin] 750 mg PO QDAY #10 tablet 01/20/17 Unknown Rx Magnesium Oxide 400 mg PO QDAY #7 tablet 01/20/17 Unknown Rx Metoclopramide [Reglan] 10 mg PO QID PRN #30 tablet 01/20/17 Unknown Rx Potassium Chloride [K-Dur] 20 meq PO BID #14 tab 01/20/17 Unknown Rx oxyCODONE [Roxicodone] 5 mg PO Q6HR PRN #15 tablet 01/20/17 Unknown Rx Ondansetron [Zofran Odt] 4 mg PO Q8HR PRN #20 tab.rapdis 05/11/17 Unknown Rx Sertraline [Zoloft] 25 mg PO QDAY #30 tab 05/11/17 Unknown Rx ED Physical Exam - General Limitations: No Limitations General appearance: anxious - Head Head exam: Present: atraumatic, normocephalic - Eye Eye exam: Present: normal appearance - ENT ENT exam: Present: mucous membranes moist - Neck Neck exam: Present: normal inspection - Respiratory Respiratory exam: Present: normal lung sounds bilaterally. Absent: respiratory distress - Cardiovascular Cardiovascular Exam: Present: regular rate, normal rhythm. Absent: systolic murmur, diastolic murmur, rubs, gallop - GI/Abdominal GI/Abdominal exam: Present: soft, normal bowel sounds - Extremities Exam Extremities exam: Present: normal inspection - Back Exam Back exam: Present: normal inspection - Neurological Exam Neurological exam: Present: alert, oriented X3 - Psychiatric Psychiatric exam: Present: anxious, other (crying ) - Skin Skin exam: Present: warm, dry, intact, normal color. Absent: rash ED Course Vital Signs 05/11/17 05/11/17 05/11/17 07:08 10:36 14:59 Temperature 98.1 F 98.4 F Pulse Rate 93 H 103 H 88 Respiratory 24 18 Rate Blood Pressure 117/53 111/69 Blood Pressure 124/56 [Right] O2 Sat by Pulse 100 100 100 Oximetry 05/11/17 05/11/17 15:02 20:00 Temperature 98.3 F Pulse Rate 81 Respiratory 18 18 Rate Blood Pressure Blood Pressure 123/62 [Right] O2 Sat by Pulse 100 98 Oximetry - Reevaluation(s) Reevaluation #1: 05/11/17 17:56 Patient admits to feeling better after meds. OB agreed that zoloft and vistaril are good for anxiety and depression in this patient. Home today. ED Medical Decision Making - Lab Data Result diagrams: 05/11/17 07:18 05/11/17 07:18 - Medical Decision Making Uti Nausea/vomiting - Differential Diagnosis uti, , nausea/vomiting, dehydration Critical care attestation.: If time is entered above; I have spent that time in minutes in the direct care of this critically ill patient, excluding procedure time. ED Disposition Clinical Impression: UTI (urinary tract infection), , Nausea & vomiting, Hypokalemia Disposition: DC-01 TO HOME OR SELFCARE Is pt being admited?: No Does the pt Need Aspirin: No Condition: Stable Instructions: (ED), Urinary Tract Infection in Women (ED) Additional Instructions: Take medicines as prescribed. Please establish with OB on discharge for your . Return to the ED for worsening Prescriptions: Ondansetron [Zofran Odt] 4 mg PO Q8HR PRN #20 tab.rapdis PRN Reason: Nausea And Vomiting Sertraline [Zoloft] 25 mg PO QDAY #30 tab Referrals: PRIMARY CARE, [Primary Care Provider] - 3-5 Days Time of Disposition: 20:22
[2017-05-11] MEDS ORDERED: VISTARIL IM ONE (16:53)
[2017-05-11] MEDS ORDERED: VISTARIL ONE (17:05)
[2017-05-11] MEDS ORDERED: NACL 0.9% 1000 ML 1,000 ML IV ONE (18:02)
[2017-05-11] MEDS ORDERED: ZOFRAN IV ONE (18:05)
[2017-05-11 20:06] VITALS: BP 123/62
== END 2017-05-11 20:43 | disposition home or self-care (01) ==
LOC: ED 05:55
DX: O23.40 Unspecified infection of urinary tract in pregnancy, unspecified trimester (principal); O99.280 Endocrine, nutritional and metabolic diseases complicating pregnancy, unspecified trimester; E87.6 Hypokalemia; O21.0 Mild hyperemesis gravidarum; Z3A.00 Weeks of gestation of pregnancy not specified
CPT/HCPCS: 36415; 80048; 81001; 81025; 85025; 96361; 96372; 96374; 99284; J0696; J2405; J3410; J7030; Q0162; Q0177

== ENCOUNTER 2019-05-27 22:05 | Emergency (ER) | payer SELFPAY | END 2019-05-28 03:56 | disposition home or self-care (01) | LOC: ED 22:05 | CPT/HCPCS: 36415; 80048; 80307; 81001; 84702; 84703; 85025; 87086; 96361; 96374; 96375; 99284; J1200; J2765; J7042; 80320; 87076; 87186; G0480 ==

== ENCOUNTER 2020-05-20 08:12 | Day surgery (SDC) | payer MEDICAID, MEDICARE ==
[2020-05-20] MEDS ORDERED: LACTATED RINGERS 1,000 ML IV SCH (09:15)
[2020-05-20] MEDS ORDERED: HYDROmorphone 1 MG/1 ML INJ IV PRN ×2 (09:31)
[2020-05-20] MEDS ORDERED: ONDANSETRON 4 MG/2 ML INJ IV PRN (09:31)
--- NOTE | 2020-05-20 09:32 | Anesthesia Day of Surgery ---
Anesthesia Day of Surgery - Day of Surgery Patient Examined: Yes Patient H&P Reviewed: Yes Patient is NPO: Yes
--- NOTE | 2020-05-20 09:33 | Anesthesia Consultation ---
Anesthesia Consult and Med Hx Date of service: 05/20/20 - Airway Anesthetic Teeth Evaluation: Good ROM Head & Neck: Adequate Mental/Hyoid Distance: Adequate Mallampati Class: Class III Intubation Access Assessment: Probably Good - Pre-Operative Health Status ASA Pre-Surgery Classification: ASA2 Proposed Anesthetic Plan: General - Pulmonary Hx Smoking: Yes (MARIJUANA 4 X PER DAY) Hx Asthma: No Hx Respiratory Symptoms: No SOB: No COPD: No Hx Pneumonia: No Hx Sleep Apnea: No (MADYSON PRE SCREEN NEGATIVE) - Cardiovascular System Hx Hypertension: No Hx Coronary Artery Disease: No Hx Heart Attack/AMI: No Hx Angina: No Hx Percutaneous Transluminal Coronary Angioplasty (PTCA): No Hx Cardia Arrhythmia: No Hx Pacemaker: No Hx Internal Defibrillator: No Hx Valvular Heart Disease: No Hx Heart Murmur: No Hx Peripheral Vascular Disease: No - Central Nervous System Hx Neuromuscular Disorder: No Hx Seizures: No CVA: No Hx Psychiatric Problems: Yes (anxiety) - Gastrointestinal Hx Ulcer: No Hx Gastroesophageal Reflux Disease: No - Endocrine Hx Renal Disease: Yes (Hydronephrosis) Hx End Stage Renal Disease: No Hx Cirrhosis: No Hx Liver Disease: No Hx Insulin Dependent Diabetes: No Hx Non-Insulin Dependent Diabetes: No Hx Thyroid Disease: No Hx Hypothyroidism: No Hx Hyperthyroidism: No - Hematic Hx Anemia: Yes (NOT RECENT) Hx Sickle Cell Disease: No - Other Systems Hx Alcohol Use: No Hx Substance Use: Yes (MARIJUANA 4 X DAY) Hx Cancer: No Hx Obesity: No
[2020-05-20] MEDS ORDERED: LIDOCAINE MPF (2%) 20 MG/1 ML VIAL 5 ML ONE (09:36)
[2020-05-20] MEDS ORDERED: propofoL 200 MG/20 ML VIAL IV ONE (09:36)
[2020-05-20] MEDS ORDERED: MIDAZOLAM 2 MG/2 ML INJ IV NR (10:00)
[2020-05-20] MEDS ORDERED: ONDANSETRON 4 MG/2 ML INJ ONE (10:57)
[2020-05-20] MEDS ORDERED: ceFAZolin/Water 2 GM/20 ML 2 GM/20 ML SYRINGE IV NR (11:00)
[2020-05-20] MEDS ORDERED: SODIUM CHLORIDE 0.9% IRRIG SOLN 2000 ML IR ONE (11:01)
--- NOTE | 2020-05-20 11:13 | Short Stay Summary ---
Short Stay Documentation Date of service: 05/20/20 - History H&P: obtained from office - Allergies and Medications Current Medications: Allergies No Known Allergies Allergy (Verified 01/19/17 20:24) Home Medications Medication Instructions Recorded Confirmed Last Taken Type oxyCODONE /ACETAMINOPHEN [Percocet 1 tab PO Q6HR PRN #30 tablet 12/25/19 05/20/20 05/19/20 Rx 5/325 mg] Active Medications Hydromorphone HCl (Hydromorphone 1 Mg/1 Ml Inj) 0.25 mg IV Q10MIN PRN PRN Reason: Pain, Moderate (4-6) Stop: 05/20/20 23:59 Hydromorphone HCl (Hydromorphone 1 Mg/1 Ml Inj) 0.5 mg IV Q10MIN PRN PRN Reason: Pain , Severe (7-10) Stop: 05/20/20 23:59 Lactated Ringer's (Lactated Ringers) 1,000 mls @ 100 mls/hr IV DIRECT SENTHIL Last Admin: 05/20/20 09:27 Dose: 100 mls/hr Documented by: Cefazolin Sodium (Ancef/Sterile Water 2 Gm/20 Ml) 2 gm in 20 mls @ 80 mls/hr IV PREOP NR; Protocol Stop: 05/20/20 20:00 Midazolam HCl (Midazolam 2 Mg/2 Ml Inj) 2 mg IV PREOP NR Stop: 05/20/20 23:59 Last Admin: 05/20/20 10:10 Dose: 2 mg Documented by: Ondansetron HCl (Ondansetron 4 Mg/2 Ml Inj) 4 mg IV ONCE PRN PRN Reason: Nausea And Vomiting - Brief post op/procedure progress note Date of procedure: 05/20/20 Pre-op diagnosis: rt ureteral stone, stent Procedure: cysto, stent removal , eswl Anesthesia: GETA Surgeon: ESVIN RAMIRES Condition: stable - Hospital course Hospital course: macrobid, norco, flomax,post op info on chart - Disposition Condition at discharge: Stable Disposition: DC-01 TO HOME OR SELFCARE Short Stay Discharge Plan Follow up with: PRIMARY CARE,MD [Primary Care Provider] - 7 Days
--- NOTE | 2020-05-20 11:34 | Operative Report ---
PREOPERATIVE DIAGNOSIS: Right mid ureteral stone, 6 mm. POSTOPERATIVE DIAGNOSIS: Right mid ureteral stone, 6 mm. PROCEDURES: Right extracorporal shock wave lithotripsy, cystoscopy, stent removal. SURGEON: Jerardo Rodriguez MD ANESTHESIA: General. ESTIMATED BLOOD LOSS: Minimal. FLUIDS: Crystalloid. COMPLICATIONS: No complications. INDICATIONS: This patient is a 39-year-old female admitted to the hospital for flank pain. She underwent emergent cysto, stent for a 6 mm stone. She presents now for lithotripsy and stent removal. DESCRIPTION OF PROCEDURE: The patient was taken to the operative suite, placed in a supine position. After adequate general anesthesia, placed in a supine position. Her stone was localized in 2 planes using fluoroscopy. Extracorporal shock wave lithotripsy was administered with a maximum kV of 10 for 100 shocks with adequate fragmentation. There was a gradual increase in shock and kV. 3000 shocks were administered. The patient tolerated the procedure well. She was frog-legged, prepped and draped. Cystoscopy was performed. Stent was removed. She was extubated and taken to recovery room. She will go home on Macrobid, Hen[place] and Flomax. JOB# [id number] C/NTS
[2020-05-20 11:39] VITALS: BP 124/69
--- NOTE | 2020-05-20 13:09 | Post Anesthesia Evaluation ---
- Post Anesthesia Evaluation Patient Participated: Yes Airway Patent: Yes Stable Respiratory Function: Yes Nausea/Vomiting: No Temp > 96.8F: Yes Pain Manageable: Yes Adequeate Hydration: Yes Anesthesia Complications: No Block Receding Appropriately: Not Applicable Patient on Ventilator: No
== END 2020-05-20 08:13 | disposition home or self-care (01) ==
LOC: OR 08:12
PROVIDERS: ATTEND Urology
DX: N13.2 Hydronephrosis with renal and ureteral calculous obstruction (principal); N39.0 Urinary tract infection, site not specified; F41.9 Anxiety disorder, unspecified; F17.210 Nicotine dependence, cigarettes, uncomplicated; Z98.890 Other specified postprocedural states; Z98.891 History of uterine scar from previous surgery; Z79.899 Other long term (current) drug therapy; Z83.3 Family history of diabetes mellitus
CPT/HCPCS: 50590; 52310; 81025; A4217; C1758; C1769; J0690; J1170; J2250; J2405; J2704; J7120; Q9967

== ENCOUNTER 2021-01-15 23:36 | Emergency (ER) | payer MEDICARE ==
[2021-01-16 03:54] VITALS: BP 122/58
== END 2021-01-16 04:58 | disposition home or self-care (01) ==
LOC: ED 23:36
DX: N20.0 Calculus of kidney (principal); N13.30 Unspecified hydronephrosis
CPT/HCPCS: 36415; 74176; 80048; 80076; 80307; 81001; 83690; 84703; 85025; 96361; 96365; 96375; 99284; J0696; J1885; J2270; J2405; J7030